=== PATIENT | female | born 1985 | race Caucasian/White ===

== ENCOUNTER 2020-11-24 08:32 | Emergency (ER) | payer MEDICAID ==
[2020-11-24 08:46] VITALS: BP 131/70; PULSE 74
--- NOTE | 2020-11-24 10:30 | EDM.PDOC ---
ED HPI GENERAL MEDICAL PROBLEM - General Chief Complaint: Gastrointestinal Problem Stated Complaint: diarrhea, vomiting Time Seen by Provider: 11/24/20 10:10 Source of Information: Reports: Patient History Limitations: Reports: No Limitations - History of Present Illness INITIAL COMMENTS - FREE TEXT/NARRATIVE: She presents to the emergency department complaining of nausea, vomiting and diarrhea since yesterday afternoon. Symptoms started about 16 hours prior to admission. States she ate some shrimp for lunch and 3 hours later started getting diarrhea. She reports watery stools every 1-2 hours since that time. She has been nauseous with 2 episodes of vomiting. She did take a Zofran which is helpful for the nausea. She did take a Lomotil but saw no change in the inez rrhea. She has been drinking a lot of water and Gatorade. She is able to keep fluids and without problems. She does work at [employer] and apparently there have been several cases of gastroenteritis there recently. No chest pain or tightness. No fever or chills. No dizziness or lightheadedness. No dysuria, urgency or frequency. - Related Data Allergies Allergy/AdvReac Type Severity Reaction Status Date / Time latex Allergy Rash Verified 11/24/20 08:34 No Known Drug Allergies Allergy Other Verified 11/24/20 08:34 Home Meds: Home Meds Montelukast [Singulair] 10 mg PO BEDTIME 04/27/15 [History] Albuterol [Ventolin HFA] 1 - 2 puff INH Q4H PRN 11/12/18 [History] Cetirizine HCl [Zyrtec] 10 mg PO DAILY 11/12/18 [History] Diphenoxylate HCl/Atropine [Lomotil] 1 tab PO QID PRN 11/12/18 [History] Fluticasone Propionate [Flonase] 1 gm NASBOTH BID 11/12/18 [History] Ondansetron [Zofran ODT] 4 mg PO Q6H PRN 11/12/18 [History] hydrOXYzine HCL [Atarax] 25 mg PO Q4H PRN 11/12/18 [History] Citalopram Hydrobromide [Celexa] 40 mg PO DAILY 11/24/20 [History] Green Tea Herlong Extract [Green Tea] 2 each PO DAILY 11/24/20 [History] Insulin Detemir [Levemir] 32 unit SUBCUT DAILY 11/24/20 [History] Insulin Lispro [HumaLOG] 6 unit SQ BID 11/24/20 [History] Liraglutide [Victoza 3-Moises] 1.8 mg SUBCUT DAILY 11/24/20 [History] atorvaSTATin [Lipitor] 20 mg PO BEDTIME 11/24/20 [History] lisinopriL [Lisinopril] 10 mg PO DAILY 11/24/20 [History] Past Medical History HEENT History: Reports: Allergic Rhinitis, Sinusitis Gastrointestinal History: Reports: Chronic Diarrhea Musculoskeletal History: Reports: Other (See Below) Other Musculoskeletal History: chronic knee pain Endocrine/Metabolic History: Reports: Diabetes, Type II - Past Surgical History Female Surgical History: Reports: Section Musculoskeletal Surgical History: Reports: Arthroscopic Knee Social & Family History - Caffeine Use Caffeine Use: Reports: Coffee, Energy Drinks, Soda, Tea ED ROS GENERAL - Review of Systems Review Of Systems: See Below Constitutional: Denies: Fever, Chills HEENT: Denies: Nosebleed, Sinus Problem, Throat Pain Respiratory: Denies: Shortness of Breath, Wheezing, Cough Cardiovascular: Denies: Chest Pain, Palpitations Endocrine: Denies: Fatigue GI/Abdominal: Reports: Abdominal Pain, Diarrhea, Nausea, Vomiting. Denies: Black Stool, Bloody Stool : Denies: Dysuria, Frequency, Urgency Neurological: Denies: Dizziness, Headache Psychiatric: Denies: Anxiety, Depression ED EXAM, GENERAL - Physical Exam Exam: See Below Exam Limited By: No Limitations General Appearance: Alert, WD/WN, No Apparent Distress Throat/Mouth: Normal Inspection, Normal Lips, Normal Oropharynx, Other (Oral mucosa is pink and moist) Head: Atraumatic, Normocephalic Respiratory/Chest: No Respiratory Distress, Lungs Clear, Normal Breath Sounds Cardiovascular: Regular Rate, Rhythm, No Murmur GI/Abdominal: Normal Bowel Sounds, Soft, Non-Tender, No Distention, No Mass Skin Exam: Warm, Dry Lymphatic: No Adenopathy Course - Vital Signs Text/Narrative:: Patient was stable and comfortable throughout the emergency department stay. Covid test was negative. Last Recorded V/S: Last Vital Signs Temp 36.1 C 11/24/20 08:34 Pulse 74 11/24/20 08:34 Resp 18 11/24/20 08:34 BP 131/70 11/24/20 08:34 Pulse Ox 100 11/24/20 08:34 - Orders/Labs/Meds Labs: Laboratory Tests 11/24/20 Range/Units 09:15 SARS-CoV-2 RNA ([facility]) Negative (NEGATIVE) Departure - Departure Time of Disposition: 10:26 Disposition: Home, Self-Care 01 Condition: Good Clinical Impression: Gastroenteritis - Discharge Information *PRESCRIPTION DRUG MONITORING PROGRAM REVIEWED*: Not Applicable *COPY OF PRESCRIPTION DRUG MONITORING REPORT IN PATIENT NOAM: Not Applicable Instructions: Dehydration, Adult, [id number], Viral Gastroenteritis, Adult, [id number] Referrals: Arina Dye PA-C [Primary Care Provider] - Additional Instructions: Drink plenty of water and/or Gatorade. Advance diet as tolerated. Zofran up to 4 times daily as needed for nausea. Lomotil 4 times daily as needed for diarrhea. No work today. May return to work on your normal shift November 26. Follow-up if symptoms are not improving in 1 to 2 days. Sepsis Event Note (ED) - Evaluation Sepsis Screening Result: No Definite Risk - Focused Exam Vital Signs: Vital Signs Temp Pulse Resp BP Pulse Ox 11/24/20 08:34 36.1 C 74 18 131/70 100
== END 2020-11-24 10:47 | disposition home or self-care (01) ==
LOC: LL.ED 08:32
DX: K52.9 Noninfective gastroenteritis and colitis, unspecified (principal); E11.9 Type 2 diabetes mellitus without complications; Z79.4 Long term (current) use of insulin; Z91.040 Latex allergy status; Z79.899 Other long term (current) drug therapy; Z20.822 Contact with and (suspected) exposure to COVID-19
CPT/HCPCS: 99283; 99284; U0002